=== PATIENT | female | born 2000 | race Caucasian/White ===

== ENCOUNTER 2024-09-17 20:58 | Emergency (ER) | payer OTHER, SELFPAY ==
[2024-09-17 21:00] VITALS: BP 124/91
[2024-09-17 22:36] VITALS: BMI 27.5
--- NOTE | 2024-09-17 22:51 | EDRN ---
Pt went to urgent care because last weekend she was vomiting for 12 hours and today she vomited couple times. Pt says her test came back 'funky' and she was advised to come to ED. It was suggested pt may need a scan. Pt noted pain around belly
button when provider pressed on abdomen tonight, did not notice abd pain prior. No urinary symptoms, fever/cough. Pt has felt chills. Neg covid test at urgent care. No cp, sob, dizziness. Pt feels 'a little weak.' No back pain.
[2024-09-17 22:57] VITALS: BP 113/70
[2024-09-17] MEDS: ZOFRAN 4 MG IV (23:26)
[2024-09-17] MEDS: NSS 1000 IV (23:26)
[2024-09-17 23:37] LABS: % Basophils 0.3 % (0-2); % Eosinophils 1.4 % (0-6); % Immature Granulocytes 0.4 % (0-0.5); % Lymphocytes 11.9 % (20.5-51.1); % Monocytes 4.7 % (1.7-9.3); % Neutrophils 81.3 % (42.2-75.2); Absolute Basophils 0.1 10^3/uL (0-0.2); Absolute Eosinophils 0.2 10^3/uL (0-0.7); Absolute Immature Granulocytes 0.1 10^3/uL (0-0.05); Absolute Lymphocytes 1.9 10^3/uL (1.2-3.4); Absolute Monocytes 0.7 10^3/uL (0.1-0.6); Absolute Neutrophils 12.9 10^3/uL (1.4-6.5); Hematocrit 38.4 % (37.0-47.0); Hemoglobin 13.5 g/dL (12.0-16.0); Mean Corp Hgb Conc. 35.2 g/dL (33.0-37.0); Mean Corpuscular Hgb 32.1 pg (27.0-31.0); Mean Corpuscular Volume 91.4 fL (81.0-99.0); Mean Platelet Volume 10.7 fL (7.4-10.4); Nucleated Red Blood Cells % 0 %; Platelet Count 259 10^3/uL (130-400); Red Cell Dist. Width 12.1 % (11.5-14.5); White Blood Cell Count 15.9 10^3/uL (4.8-10.8)
[2024-09-18] VITALS: BP 102/60
[2024-09-18 00:15] LABS: ALT (SGPT) 14 U/L (0-35); AST (SGOT) 23 U/L (14-36); Albumin 4.5 g/dl (3.5-5.0); Alkaline Phosphatase 67 U/L (38-126); Blood Urea Nitrogen 8 mg/dl (7-17); Calcium 9.6 mg/dl (8.4-10.2); Carbon Dioxide 22 mmol/L (22-30); Chloride 104 mmol/L (98-107); Estimated Creatinine Clearance > 125 ml/min; Glucose 91 mg/dl (70-99); Lithium 0.3 mmol/L (0.6-1.2); Sodium 139 mmol/L (135-145); Total Bilirubin 0.7 mg/dl (0.2-1.3); Total Protein 6.5 g/dl (6.3-8.2); eGFR > 60.00
[2024-09-18 01:00] VITALS: BP 111/75
--- NOTE | 2024-09-18 01:00 | ED.GENMED ---
History of Present Illness
General
Chief Complaint: Abdominal Symptoms
Source: patient and family
Time Seen by Provider: 09/17/24 22:41
History of Present Illness
History of Present Illness:
23-year-old female presents with nausea. Was seen in urgent care and was noted that she had a mild white count. Sent for further evaluation. Patient denies any abdominal pain. Patient admits that she has same symptoms last week and was seen fine
during the week and then this weekend developed them again. She is starting new job tomorrow but no sick contacts. No fevers. No dysuria. No urinary frequency. No urinary urgency. She had a urine study done at the urgent care that was grossly
unremarkable. Of note, she does smoke marijuana daily
Past History
Past History
ED Past Medical History: Asthma and Psychiatric
ED Past Surgical History: Tonsilectomy
Social History
Tobacco: Non-smoker
Alcohol: None
Personal: Single
Living: with family
Employment: Student
Family History
Family History: Other (Noncontributory)
Phy Exam
Physical Exam
Physical Exam:
CONSTITUTIONAL Patient alert and oriented to person, place and time. Well-appearing. Vital signs reviewed.
HEAD atraumatic, normocephalic.
EYES eyelids normal to inspection, Extraocular muscles intact, Conjunctiva normal, Sclera normal.
NECK normal range of motion, Trachea midline, no jugular venous distention.
RESPIRATORY CHEST No respiratory distress noted, Chest expansion equal, Bilateral breath sounds clear.
CARDIOVASCULAR regular rate and rhythm, Heart sounds normal.
ABDOMEN abdomen nontender, Bowel sounds normal. No distention. Reports point nontender
BACK normal inspection, no obvious deformities
UPPER EXTREMITY range of motion normal, Motor strength normal, no cyanosis, no edema.
LOWER EXTREMITY range of motion normal, Motor strength normal, no cyanosis, no edema.
NEURO Speech normal, No focal motor deficits, Terence coma scale 15, Memory normal, Cranial Nerves intact to screening exam.
SKIN skin warm, dry, and normal in color.
Course
Orders/Labs/Results
Orders:
Orders
09/17/24 23:08
0.9% Sodium Chloride 1000 ml [Nss] 1,000 ml IV BOLUS
Ondansetron Injectable [Zofran] 4 mg IV NOW STA
09/17/24 23:09
Add On- LAB Urgent
Tests Added?: dig level
09/17/24 23:20
Complete Blood Count/With Diff Urgent
09/17/24 23:53
Comprehensive Metabolic Panel Urgent
[place] [facility]
Abnormal Lab Results
09/17/24 09/17/24
23:20 23:53
WBC 15.9 H 10^3/uL
(4.8-10.8)
MCH 32.1 H pg
(27.0-31.0)
MPV 10.7 H fL
(7.4-10.4)
Abs Immat Gran (auto) 0.1 H 10^3/uL
(0-0.05)
Absolute Neuts (auto) 12.9 H 10^3/uL
(1.4-6.5)
Absolute Monos (auto) 0.7 H 10^3/uL
(0.1-0.6)
Neutrophils % 81.3 H %
(42.2-75.2)
Lymphocytes % 11.9 L %
(20.5-51.1)
Creatinine 0.5 L mg/dL
(0.6-1.0)
[place] 0.3 L mmol/L
(0.6-1.2)
09/17/24 23:20
09/17/24 23:53
Vital Signs
Initial and Last Documented VS:
Initial Vital Signs
Temp Pulse Resp BP Pulse Ox
98.3 F 97 20 124/91 99
09/17/24 21:00 09/17/24 21:00 09/17/24 21:00 09/17/24 21:00 09/17/24 21:00
Last Documented Vital Signs
Temp Pulse Resp BP Pulse Ox
98.3 F 86 16 102/60 96
09/17/24 21:00 09/18/24 00:00 09/17/24 22:57 09/18/24 00:00 09/18/24 00:00
MDM/Problems Addressed
MDM/Problems Addressed:
Nausea
*Pulse Oximetry
Patient hypoxic: no
*Critical Care Note
Total Time (30-74mins, 75-104mins- exclusive of procedures): Not Applicable
Data Reviewed
Source: patient and family
Further Testing Considered But Not Given:
Consider CT but abdomen reassessed again and she has no tenderness.
Patient Management
Escalation/DeEscalation of care consider admission/obs:
Nausea last week and again this weekend. She does have a leukocytosis noted. However her abdominal exam is benign. She has no abdominal tenderness and specifically has no right upper quadrant or right lower quadrant tenderness. On reassessment
she feels much better. She has no further nausea. Shared decision making with both mom and the patient and at this time we will forego CT imaging. Patient and family comfortable with this as she will continue to watch her symptoms over 24 hours.
We reviewed in detail the importance of her returning of her symptoms worsen or she develops other symptoms such as abdominal pain of any kind, vomiting or fevers. Patient agrees. If intermittent nausea over time persist she may need further GI
workup.
ED Attending Note
-
Portions of this chart may have been created with voice recognition software.� Occasional wrong word or��sound alike� substitutions may have occurred due to the inherent limitations of voice recognition software.
Discharge Plan
Departure
Patient Disposition: Home (Routine Discharge)
Date of Disposition: 09/18/24
Time of Disposition: 01:02
Patient with high blood pressure during this ER visit?: No
Discharge Problem:
Nausea
Instructions: Nausea and Vomiting, Adult (DC)
Prescriptions:
No Action
aripiprazole [Abilify] 30 mg Tablet
30 mg PO DAILY
lithium carbonate 300 mg Tablet
900 mg PO HS
quetiapine 50 mg Tablet
50 mg PO HS
lamotrigine [Lamictal XR] 300 mg Tablet Extended Release 24hr
300 mg PO DAILY
Referrals:
NONE,* [Family Provider] -
Roscoe Raygoza MD [Active] -
Activity Restrictions/Additional Instructions:
Please drink plenty fluids and advance diet slowly as discussed. If symptoms persist please see your doctor or GI in follow-up. Return immediately for fevers, abdominal pain of any kind, vomiting or any other concerns.
Interventions
Interventions:
*Risk Screen - Suicide Last Done: 09/17/24 22:49
*General Assessment Last Done: 09/17/24 21:00
*Neglect/Abuse Screening Last Done: 09/17/24 22:49
*ED COVID-19 Vaccine History Last Done: 09/17/24 22:49
IX-Lhobxl-Vczwzebnbq Assessment Last Done: 09/17/24 23:00
Discharge Date and Time
Print Language: LIBYAN
[2024-09-18 01:12] VITALS: BP 111/77
== END 2024-09-18 01:17 | disposition home or self-care (01) ==
LOC: EMR 20:58
PROVIDERS: EMERGENCY PHYSICIAN Emergency Medicine
DX: R11.0 Nausea (principal); J45.909 Unspecified asthma, uncomplicated
CPT/HCPCS: 99284; 96374; 96361 ×2; 80053; 80178; 85025

== ENCOUNTER 2024-09-21 11:26 | Emergency (ER) | payer OTHER, SELFPAY ==
[2024-09-21 11:28] VITALS: BP 127/72
[2024-09-21 11:45] LABS: % Basophils 0.4 % (0-2); % Eosinophils 5.9 % (0-6); % Immature Granulocytes 0.3 % (0-0.5); % Lymphocytes 16.3 % (20.5-51.1); % Monocytes 5.8 % (1.7-9.3); % Neutrophils 71.3 % (42.2-75.2); Absolute Basophils 0.1 10^3/uL (0-0.2); Absolute Eosinophils 0.7 10^3/uL (0-0.7); Absolute Lymphocytes 1.9 10^3/uL (1.2-3.4); Absolute Monocytes 0.7 10^3/uL (0.1-0.6); Absolute Neutrophils 8.5 10^3/uL (1.4-6.5); Hematocrit 38.4 % (37.0-47.0); Hemoglobin 13.3 g/dL (12.0-16.0); Mean Corp Hgb Conc. 34.6 g/dL (33.0-37.0); Mean Corpuscular Volume 89.5 fL (81.0-99.0); Mean Platelet Volume 10.4 fL (7.4-10.4); Nucleated Red Blood Cells % 0 %; Platelet Count 290 10^3/uL (130-400); Red Blood Cell Count 4.29 10^6/uL (4.20-5.40); Red Cell Dist. Width 12.2 % (11.5-14.5); White Blood Cell Count 11.9 10^3/uL (4.8-10.8)
[2024-09-21 11:58] LABS: HCG, Serum Qualitative Screen Negative
[2024-09-21 12:05] LABS: ALT (SGPT) 15 U/L (0-35); AST (SGOT) 23 U/L (14-36); Albumin 4.8 g/dl (3.5-5.0); Alkaline Phosphatase 67 U/L (38-126); Blood Urea Nitrogen 5 mg/dl (7-17); Carbon Dioxide 26 mmol/L (22-30); Chloride 102 mmol/L (98-107); Glucose 83 mg/dl (70-99); Lipase 123 U/L (23-300); Potassium 4.1 mmol/L (3.5-5.1); Sodium 138 mmol/L (135-145); Total Bilirubin 0.6 mg/dl (0.2-1.3); Total Protein 6.8 g/dl (6.3-8.2); eGFR > 60.00
--- NOTE | 2024-09-21 12:56 | ED.GENMED ---
History of Present Illness
General
Chief Complaint: Abdominal Symptoms
Source: patient, records and family
Time Seen by Provider: 09/21/24 12:38
History of Present Illness
History of Present Illness:
23yoF with a history of bipolar disorder presenting with her mother for evaluation of nausea. Her nausea initially started about a week and a half ago. She has been having intermittent vomiting. She was vomiting persistently 4 days ago which
prompted her to go to urgent care. She was ultimately sent to the ED for evaluation. Patient had a benign abdominal exam at that time and received IV Zofran with improvement. Patient has Zofran at home which she has been using as needed although
mother states that this medication is several years old and she is not sure if this is a . Patient continues to feel nauseous but has not vomited since her last ED visit 4 days ago. She denies any abdominal pain, fevers, diarrhea. She is
urinating normally. Patient is currently on multiple medications for her bipolar disorder including Abilify, Seroquel, Lamictal, and lithium. [place] levels were checked 4 days ago which were normal.
Past History
Past History
ED Past Medical History: Asthma and Psychiatric
ED Past Surgical History: Tonsilectomy
Social History
Tobacco: Non-smoker
Alcohol: None
Personal: Single
Living: with family
Employment: Student
Family History
Family History: Other (Noncontributory)
Phy Exam
General Physical Exam
General Presentation: well appearing and no apparent distress
General age: appears stated age
General Skin: warm and dry
General Habitus: normal
General Mental: alert
General Hydration: appears well hydrated
ENT Exam
ENT Exam: normocephalic
Cardiovascular Exam
Cardiovascular Exam: regular rate/rhythm and no murmur
Pulmonary Exam
Pulmonary Exam: lungs clear, no respiratory distress, no rales, no crackles, no rhonchi and no wheezing
Gastrointestinal Exam
Gastrointestinal Exam: non tender, soft and non distended
Terence Coma Scale
Eye Opening: Spontaneous
Verbal Response: Oriented
Motor Response: Obeys Commands
GCS Total Score: 15
Skin Exam
Skin Exam: normal color and warm/dry
Psychiatric Exam
Psychiatric Exam: normal mood/affect
Course
Orders/Labs/Results
Orders:
Orders
09/21/24 11:30
Test Result ONCE
09/21/24 11:34
Complete Blood Count/With Diff Urgent
Comprehensive Metabolic Panel Urgent
HCG, Serum Qualitative Screen Urgent
[place] Urgent
Abnormal Lab Results
09/21/24
11:34
WBC 11.9 H 10^3/uL
(4.8-10.8)
Absolute Neuts (auto) 8.5 H 10^3/uL
(1.4-6.5)
Absolute Monos (auto) 0.7 H 10^3/uL
(0.1-0.6)
Lymphocytes % 16.3 L %
(20.5-51.1)
BUN 5 L mg/dl
(7-17)
09/21/24 11:34
09/21/24 11:34
Vital Signs
Initial and Last Documented VS:
Initial Vital Signs
Temp Pulse Resp BP Pulse Ox
98.2 F 98 18 127/72 100
09/21/24 11:28 09/21/24 11:28 09/21/24 11:28 09/21/24 11:28 09/21/24 11:28
Last Documented Vital Signs
Temp Pulse Resp BP Pulse Ox
98.2 F 78 18 127/72 99
09/21/24 11:28 09/21/24 13:17 09/21/24 13:17 09/21/24 11:28 09/21/24 13:17
MDM/Problems Addressed
Differential Diagnosis Includes:
23yoF here with nausea. She was seen in the ED 4 days ago for n/v. No vomiting since her last ED visit but she continues to feel nauseous. Otherwise asymptomatic. VSS. She is well appearing in no distress. Exam is reassuring and abdominal exam is
benign.
Abdominal labs and HCG obtained in triage. White count is 11.9 which is decreased from 15.9 four days ago. Remainder of labs unremarkable including normal electrolytes and renal function. HCG negative. No indication for further workup at this time.
Will refill Zofran as she believes the Zofran that she has at home is . Supportive care discussed. Advised f/u with PCP and ED return precautions discussed. She expressed understanding and is agreeable to plan. She was discharged in stable
condition.
*Critical Care Note
Total Time (30-74mins, 75-104mins- exclusive of procedures): Not Applicable
ED Attending Note
-
Portions of this chart may have been created with voice recognition software.� Occasional wrong word or��sound alike� substitutions may have occurred due to the inherent limitations of voice recognition software.
Discharge Plan
Departure
Patient Disposition: Home (Routine Discharge)
Date of Disposition: 09/21/24
Time of Disposition: 12:59
Patient with high blood pressure during this ER visit?: No
Discharge Problem:
Nausea
Instructions: Nausea and Vomiting, Adult (DC)
Prescriptions:
New
ondansetron 4 mg tablet,disintegrating
4 mg PO Q6H PRN (Reason: nausea and vomiting) Qty: 20 0RF
No Action
aripiprazole [Abilify] 30 mg Tablet
30 mg PO DAILY
lithium carbonate 300 mg Tablet
900 mg PO HS
quetiapine 50 mg Tablet
50 mg PO HS
lamotrigine [Lamictal XR] 300 mg Tablet Extended Release 24hr
300 mg PO DAILY
Referrals:
NONE,* [Family Provider] -
Activity Restrictions/Additional Instructions:
Take Zofran as needed for nausea. Eat small meals throughout the day and drink sips of fluids throughout the hour.
Call the [facility] ([phone]) to find a family doctor for follow-up.
Return to the ER with any worsening symptoms, signs of dehydration, or if you are unable to keep down fluids.
Interventions
Interventions:
*Risk Screen - Suicide Last Done: 09/21/24 11:28
*General Assessment Last Done: 09/21/24 11:28
*Neglect/Abuse Screening Last Done: 09/21/24 11:28
ED- Fall Risk Assessment Last Done: 09/21/24 12:26
*ED COVID-19 Vaccine History Last Done: 09/21/24 11:28
*Nursing Disposition Last Done: 09/21/24 13:18
JO-Anxmon-Apvkjemmqg Assessment Last Done: 09/21/24 12:26
Discharge Date and Time
Discharge Date/Time: 09/21/24 13:18
Print Language: [place]
== END 2024-09-21 13:18 | disposition home or self-care (01) ==
LOC: EMR 11:26
PROVIDERS: Emergency Medicine; EMERGENCY PHYSICIAN Emergency Medicine
DX: R11.0 Nausea (principal); F31.9 Bipolar disorder, unspecified
CPT/HCPCS: 99283; 80053; 83690; 84703; 85025